=== PATIENT | male | born 1975 | race Caucasian/White ===

== ENCOUNTER 2025-05-19 15:39 | Outpatient (AMB) | payer BC, SELFPAY ==
--- OUTSIDE RECORDS SUMMARY | 2025-05-19 15:41 | XMS_ITS | Clinical Summary ---
Author Organization 175 [facility] Address [address] [place] [address] Phone Care Team Providers Care Kettle Tender Name Role Phone Emely Raphael MD Primary Care Provider [phone] Allergies No known active allergies Medications buPROPion XL (WELLBUTRIN XL) 150 mg 24 hr tablet Take 150 mg by mouth every morning. Active buPROPion XL (WELLBUTRIN XL) 300 mg 24 hr tablet Take 300 mg by mouth every morning. Active cholecalcifero l (VITAMIN D-3) 50 mcg (2,000 unit) tablet Take 1 Tablet by mouth daily. 02/14/20 24 Active fluticasone propion-salmet Selvin (ADVAIR HFA) 230-21 mcg/actuation inhaler Inhale 2 Puffs into the lungs 2 times daily for 360 days. 09/20/20 23 Active gabapentin (NEURONTIN) 300 mg capsule Take 1 Capsule by mouth at bedtime. 09/04/20 22 Active LORazepam (ATIVAN) 0.5 mg tablet Take 0.5 mg by mouth every 6 hours as needed. Active SUMAtriptan (IMITREX) 50 mg tablet Take 1 Tablet by mouth as needed. 11/14/19 23 Active topiramate (TOPAMAX) 50 mg tablet TAKE 1 TABLET BY MOUTH TWICE A DAY FOR 90 DAYS 08/09/20 23 Active venlafaxine XR (EFFEXOR-XR) 150 mg 24 hr capsule TAKE 1 CAPSULE BY MOUTH ONCE A DAY WITH 75 MG CAPSULE FOR TOTAL DOSE = 225 MG. 09/01/20 23 Active venlafaxine XR (EFFEXOR-XR) 75 mg 24 hr capsule Take 1 Capsule by mouth daily. Active triamcinolone (KENALOG) 0.5 % cream Apply locally twice a day Active semaglutide (WEGOVY) 0.25 mg/0.5 mL injection pen Inject 0.25 mg into the skin once a week. - Subcutaneous Active albuterol HFA (PROAIR HFA ; PROVENTIL HFA ; VENTOLIN HFA) 90 mcg/actuation inhaler INHALE 2 PUFFS BY MOUTH EVERY 6 HOURS NEEDED FOR COUGH, WHEEZING, OR SHORTNESS OF BREATH FOR UP TO 30 DAYS 8.5 each 10/03/20 24 Active fluticasone furoate (Arnuity Ellipta) 100 mcg/actuation blister with device inhalerIndicat ions:Moderate persistent asthma, unspecified whether complicated Inhale 1 puff by mouth 1 (one) time each day. 3 each 10/31/19 25 026 Active Arnuity Ellipta 200 mcg/actuation blister with device inhaler INHALE 1 PPUFF EVERY DAY 30 each 12/04/19 25 Active fluticasone furoate-vilant Selvin (Breo Ellipta) 200-25 mcg/dose inhaler Inhale 1 puff by mouth 1 (one) time each day. 1 each 05/01/20 25 026 Active albuterol HFA (PROAIR HFA ; PROVENTIL HFA ; VENTOLIN HFA) 90 mcg/actuation inhaler Inhale 2 puffs by mouth every 6 (six) hours if needed for wheezing or shortness of breath. 1 each 05/01/20 25 026 Active lisinopriL (PRINIVIL,ZEST RIL) 10 mg tablet TAKE 1 TABLET BY MOUTH EVERY DAY 90 tablet 3 05/09/20 25 Active simvastatin (ZOCOR) 40 mg tablet TAKE 1 TABLET BY MOUTH EVERYDAY AT BEDTIME 90 tablet 05/12/20 25 Active lisinopriL (PRINIVIL,ZEST RIL) 10 mg tablet Take 1 Tablet by mouth daily. 02/14/20 24 025 Discontinued simvastatin (ZOCOR) 40 mg tablet Take 1 Tablet by mouth at bedtime. 02/14/20 24 025 Discontinued Active Problems Problem Noted Date Diagnosed Date Severe obesity (BMI 35.0-35. 9 with comorbidity) ([facility] V24, [facility] V28) 07/18/2024 Other specified anemias 06/27/2022 Allergic rhinitis 12/12/2020 Anxiety 12/12/2020 Depression 12/12/2020 Fatty liver 12/12/2020 Hyperlipidemia 12/12/2020 Hypertension 12/12/2020 Migraine 12/12/2020 DAWIT (obstructive sleep apnea) 12/12/2020 Prediabetes 12/12/2020 Encounters Date Type Department Care Team Description 05/01/2025 2:00 PM EDT Office Visit Pulmonolgy - [address] [place] [address] Mariana Mena MD DAWIT on CPAP (Primary Dx); Chronic bronchitis, unspecified chronic bronchitis type ([facility] V24, [facility] V28); Other idiopathic scoliosis, unspecified spinal region; Moderate persistent asthma, unspecified whether complicated from Last 3 Months Immunizations Name Administration Dates Next Due Influenza Quadravalent, MDCK , 0.5ml, preservative free (Flucelvax) 6mo and older 10/03/2023 Influenza trivalent, MDCK, 0 .5mL, preservative free (Flucelvax) 6mo and older 06/13/2024 Moderna SARS-CoV-2 COVID-19, mRNA, LNP-S, preservative free 08/17/2021 Tdap Tetanus diptheria acell ular pertussis (Boostrix; Adacel) 7yo and older 02/09/2023,07/12/2017,05/02/2013 Medical History Medical History Date Comments Hypertension 12/12/2020 DX:Hypertension Prediabetes 12/12/2020 DX:Prediabetes Depression 12/12/2020 DX:Depression Fatty liver 12/12/2020 DX:Fatty liver Allergic rhinitis 12/12/2020 DX:Allergic rh initis Severe obesity (BMI 35.0-35. 9 with comorbidity) ([facility] V24, [facility] V28) 12/12/2020 DX:Severe obes ity (BMI 35.0- 35.9 with comorbidity) ([facility]) Family History Medical History Relation Name Comments Depression Brother Diabetes Father Coronary artery disease Mother Relation Name Status Comments Brother Father Mother Social History Tobacco Use Types Packs/Day Years Used Date Smoking Tobacco: Never Smokeless Tobacco: Never Tobacco Cessation:Counseling Given: Not Answered Alcohol Use Standard Drinks/Week Comments Never 0 (1 standard drink = 0.6 oz pur e alcohol) Housing Instability Answer Date Recorde d Are you worried that in the next 2 months you may not have stable housing? No 02/13/2025 Food Access & Nutrition Answer Date Rec orded Do you have access to a vari ety of food including fruits and vegetables? Yes 02/13/2025 Access to Healthcare Answer Date Record ed Within the last 3 months, ho w many times did you visit the emergency department for your medical care? 0 02/13/2025 Health Literacy Answer Date Recorded How often do you need to hav e someone help you when you read instructions, pamphlets, or other written material from your doctor or pharmacy? Rarely 02/13/2025 Caregiver: How often do you need to have someone help you when you read instructions, pamphlets, or other written material from your doctor or pharmacy? Not on file 02/13/2025 Financial Risk Answer Date Recorded How hard is it for you to pa y for the very basics like food, housing, medical care, and air conditioning / heating? Somewhat hard 02/13/2025 Transportation Answer Date Recorded Has the lack of transportati on kept you from meetings, work, or from getting things needed for daily living? Patient declined 02/13/2025 Has the lack of transportati on kept you from medical appointments or from getting medications? Patient declined 02/13/2025 Social Isolation Answer Date Recorded How often do you feel lonely or isolated from th ose around you? Often 02/13/2025 Food Risk Answer Date Recorded Within the past 12 months we worried whether our food would run out before we got money to buy more. Sometimes true 025 Within the past 12 months th e food we bought just didn't last and we didn't have money to get more. Never true 02/13/2025 Dependent Care Answer Date Recorded Do you need help finding or paying for care for your loved ones. For example, manager child or elderly care for an older adult? Patient declined 02/13/2025 Education Answer Date Recorded Do you think completing more education or training, like finishing a GED, going to college, or learning a trade, would be helpful for you? Patient declined 02/13/2025 Employment and Income Answer Date Recor ded During the last four weeks, have you been actively looking for work? Patient declined 02/13/2025 Living Situation Answer Date Recorded What is your living situation? 0 02/13/2025 Sex and Gender Information Value Date Recorded Sex Assigned at Not on file Legal Sex Male 5:47 PM EST Gender Identity Not on file Sexual Orientation Not on file Obstetrics History Last Filed Vital Signs Vital Sign Reading Time Taken Comments Blood Pressure 152/96 05/01/2025 1:48 PM EDT Pulse 83 05/01/2025 1:48 PM EDT Temperature 37 C (98.6 F) 05/01/2025 1:48 PM EDT Respiratory Rate 20 10/31/2024 2:17 PM EST Oxygen Saturation 98% 05/01/2025 1:48 PM EDT Inhaled Oxygen Concentration - - Weight 117 kg (258 lb) 05/01/2025 1:48 PM EDT Height 177.8 cm (5' 10 ) 10/31/2024 2:17 PM EST Body Mass Index 37.02 10/31/2024 2:17 PM EST Plan of Treatment Upcoming Encounters Date Type Department Care Team (Late st Contact Info) Description 10/29/2025 3:30 PM EST Office Visit Pulmonol - [place] [facility] [address] [place] [phone] Mariana Mena MD [address] [address] Health Maintenance Due Date Last Done Comments Hepatitis B Vaccines (1 of 3 - 19+ 3-dose series) 1994 Pneumococcal Vaccine: Pediatrics (0 to 5 Years) and At-Risk Patients (6 to 49 Years) (1 of 2 - PCV) 1994 Colorectal Cancer Screening: Colonoscopy 09/24/2022 HIV Screening 09/24/2022 Hepatitis C Screening 09/24/2022 Medicare Annual Wellness Visit 09/24/2022 Hypertension/CHF/CAD Annual BMP Blood Test 02/13/2025 02/14/2024, 02/14/2024 Influenza Vaccine (#1) 2025 06/13/2024, 2022 Social Influencers of Health Screening 02/13/2026 02/13/2025 Cholesterol Screening (Lipid Panel) 02/13/2029 02/14/2024, 02/14/2024 DTaP,Tdap,and Td Vaccines (4 - Td or Tdap) 02/09/2033 02/09/2023, 07/12/2017, 05/02/2013 COVID-19 Vaccine Completed 06/13/2024, , 08/08/2022, Additional history exists Depression Screening Completed 02/13/2025 HIB Vaccines Aged Out No longer eligi ble based on patient's age to complete this topic HPV Vaccines Aged Out No longer eligi ble based on patient's age to complete this topic Hepatitis A Vaccines Aged Out No long er eligible based on patient's age to complete this topic IPV Vaccines Aged Out No longer eligi ble based on patient's age to complete this topic MMR Vaccines Aged Out No longer eligi ble based on patient's age to complete this topic Meningococcal ACWY Vaccine Aged Out N o longer eligible based on patient's age to complete this topic Meningococcal B Vaccine Aged Out No l onger eligible based on patient's age to complete this topic RSV Immunization Patients Under 20 months Aged Out No longer eligible based on patient's age to complete this topic Varicella Vaccines Aged Out No longer eligible based on patient's age to complete this topic Procedures Procedure Name Priority Date/Time Associated Diagnosis Comments ANNUAL BMP BLOOD TEST Routine 02/14/2024 LIPID PANEL Routine 02/14/2024 from Last 3 Months or Most Recently Relevant to Health Maintenance Results * Annual BMP Blood Test (02/14/2024) Pathologist [facility] Annual BMP Blood Test abstracted Historical Provider HEALTH MAINTENANCE Final Result * (ABNORMAL) Lipid panel (02/14/2024) [facility] LDL/HDL Ratio 4 0 - 4 Triglycerides 165(A) 0 - 150 mg/dL Cholesterol 172 0 - 200 mg/dL HDL 41 >=40 mg/dL LDL Cholesterol 98 0 - 100 mg/dL Blood Venous blood specimen / Unknown Historical Provider LAB BLOOD ORDERABLES Brianna l Result from Last 3 Months or Most Recently Relevant to Health Maintenance [place] Care Teams Kettle Tender Relationship Specialty Start Date End Date Emely Raphael MD [address] [place] [phone] PCP - General Internal Medicine 08/23/24
--- OUTSIDE RECORDS SUMMARY | 2025-05-19 15:42 | XMS_ITS ---
Author Name [facility] Organization Unknown Care Team Organization Name Specialty Phone Email Start Date End Da te [facility] [place] [facility] 08/23/2022 06/03/20 24
--- OUTSIDE RECORDS SUMMARY | 2025-05-19 15:42 | XMS_ITS | Clinical Summary ---
Author Organization [facility] Address [address] [place] [address] Care Team Providers Care Child Welfare Counselor Name Role Phone Emely Raphael MD Primary Care Provider [phone] Allergies No known active allergies Medications Medication Sig Dispensed Refills Start Date End Date Status topiramate (TOPAMAX) 50 MG tablet Take 1 tablet (50 mg total) by mouth daily. 0 Active lisinopril (PRINIVIL,ZESTRIL) tablet 10 mg Take 1 tablet (10 mg total) by mouth daily. 0 Active simvastatin (ZOCOR) tablet 40 mg Take 1 tablet (40 mg total) by mouth every night at bedtime. 0 Active buPROPion (WELLBUTRIN XL) 300 MG 24 hr tablet Take 1 tablet (300 mg total) by mouth daily. 0 Active buPROPion (WELLBUTRIN XL) 150 MG 24 hr tablet Take 1 tablet (150 mg total) by mouth daily. 0 Active LORazepam (ATIVAN) 0.5 MG tablet Take 1 tablet (0.5 mg total) by mouth every 6 (six) hours as needed. 0 Active venlafaxine (EFFEXOR-XR) 75 MG 24 hr capsule Take 1 capsule (75 mg total) by mouth daily. 0 Active gabapentin (NEURONTIN) 300 MG capsule Take 1 capsule (300 mg total) by mouth 3 (three) times a day. 0 Active SUMAtriptan (IMITREX) 50 MG tablet Take 1 tablet (50 mg total) by mouth every 2 (two) hours as needed for migraine. 0 Active Active Problems Problem Noted Date Diagnosed Date Other specified anemias 06/27/2022 Social History Tobacco Use Types Packs/Day Years Used Date Smoking Tobacco: Never Assessed Sex and Gender Information Value Date Recorded Sex Assigned at Male 06/27/2022 11:47 AM EDT Gender Identity Not on file Sexual Orientation Not on file Job Start Date Occupation Industry Not on file Not on file Not on file Last Filed Vital Signs Vital Sign Reading Time Taken Comments Blood Pressure 150/86 02/27/2023 11:38 AM EDT Pulse 98 02/27/2023 11:38 AM EDT Temperature 36.9 C (98.5 F) 02/27/2023 11:38 AM EDT Respiratory Rate - - Oxygen Saturation 99% 02/27/2023 11: 38 AM EDT Inhaled Oxygen Concentration - - Weight 124.1 kg (273 lb 9.6 oz) 023 11:38 AM EDT Height 177.8 cm (5' 10 ) 02/27/2023 11: 38 AM EDT Body Mass Index 39.26 02/27/2023 11:38 AM EDT Plan of Treatment Health Maintenance Due Date Last Done Comments Hepatitis B Vaccines (1 of 3 - 3-dose series) 1975 Hepatitis C Screening 1975 COVID-19 Vaccine (#1) 05/16/1976 Depression Screening 1987 Preventative Health Evaluation 1993 Colon Cancer Screening (Colonoscopy) 2020 Influenza Vaccine (#1) 2025 DTap / Tdap / Td (3 - Td or Tdap) 02/09/2033 02/09/2023, 05/02/2013 Pneumococcal Vaccine Aged Out No long er eligible based on patient's age to complete this topic RSV Ped < 20 months Aged Out No longe r eligible based on patient's age to complete this topic Care Teams Child Welfare Counselor Relationship Specialty Start Date End Date Emely Raphael MD [address] [phone] PCP - General Internal Medicine 03/24/22
--- NOTE | 2025-05-19 16:07 | A.OFFVIS_ITS ---
Intake Visit Reasons: Migrane/ RLS Allergies No Known Allergies Allergy (Verified 05/19/25 16:11) Medication List - Last Reconciled 05/19/25 by Soraida Oneil CNP bupropion HCl XL 300 mg PO QAM clonidine HCl 0.1 mg PO BEDTIME PRN fluticasone furoate-vilanterol 200-25 mcg/dose (Breo Ellipta) 1 ea inhalation DAILY gabapentin 300 mg PO BEDTIME lisinopril 10 mg PO DAILY lorazepam 0.5 mg PO TID PRN simvastatin 40 mg PO BEDTIME sumatriptan succinate mg PO topiramate 50 mg PO BID venlafaxine ER 75 mg PO DAILY HPI Comments Details: 49-year-old RH man with obesity, HTN, DAWIT on CPAP, RLS, depression, anxiety, and migraine. He was doing okay. He was getting migraine about 4-5x/month with photophobia, sonophobia, and sometimes dizziness. Migraines were triggered by changes in barometric pressure or with humidity. Sumatriptan as needed helped, but he ran out of medication. RLS symptoms were controlled with medication. Mood was more depressed. He was working with psychiatrist. Sleep was okay with CPAP. [facility] Medical History (Updated 05/19/25 @ 16:10 by Soraida Oneil CNP) DAWIT on CPAP Hypertension Bruxism RLS (restless legs syndrome) Insomnia Migraine without aura Anxiety and depression Review of Systems Const Denies chills, Denies daytime sleepiness, Denies difficulty sleeping, Denies fatigue, Denies fever(s), Denies frequent falls, Reports headache(s), Denies increased appetite, Denies poor appetite, Denies snoring, Denies weakness, Denies weight gain and Denies weight loss Eyes Denies loss of vision ENT Denies vertigo, Denies dizziness and Reports headache(s) Card Denies chest pain at rest, Denies chest pain with activity, Denies syncope, Denies leg edema and Denies palpitations Resp Denies snoring GI Denies constipation, Denies heartburn, Denies diarrhea and Denies nausea Denies urinary frequency, Denies urinary incontinence and Denies urinary urgency Musc Denies abnormal gait, Denies numbness and Denies tingling Skin/Breast Denies dry skin and Denies rash Neuro Denies abnormal gait, Denies vertigo, Denies dizziness, Denies syncope, Denies frequent falls, Reports headache(s), Denies lack of coordination, Denies loss of vision, Denies memory loss, Denies numbness, Reports restless legs, Denies seizure-like activity, Denies tingling, Denies paresthesias, Denies tremor(s) and Denies weakness Psych Denies anxiety, Denies depression, Denies auditory hallucinations, Denies memory loss, Denies visual hallucinations and Denies suicidal ideation Endo Denies fatigue and Denies palpitations Physical Exam Const Other: General Appearance:? normal, in no acute distress. Skin:? no rashes, no significant birthmarks. Heart:? S1, S2 normal, no murmurs. Lungs:? clear anteriorly and posteriorly. Extremities:? no edema. Psych:? alert, oriented, cognitive function intact, cooperative with exam. Neuro Other: Mental Status:?Normal attention, orientation, and flat affect.? Cranial Nerves:?Pupils are equal, round and reactive to light. External occular muscles are intact. Visual rodriguez are full. Face is symmetrical. Facial sensations are normal. Tongue is midline. Palate elevates symmetrically. Shoulder shrugging is normal. Hearing to bedside conversation is normal. Sensory Exam:?....? Coordination:?No ataxia,?no titubation.? Gait Exam: Within normal limits. Cerebellar Signs:?[id number] is okay. Extrapyramidal System:?No tremor, rigidity with normal facial expressions.? Pronator Drift:?Not present.? Involuntary Movements:?No tremors seen.? Speech:?Normal.? Assessment & Plan Assessment & Plan (1) Migraine without aura: Code(s): G43.009 - Migraine without aura, not intractable, without status migrainosus Category: Medical Qualifiers: Status migrainosus presence: without status migrainosus Intractability: not intractable Qualified Code(s): G43.009 - Migraine without aura, not intractable, without status migrainosus Plan: Continue topiramate 50mg 1 tablet twice a day. Continue sumatriptan 50mg 1 tablet as needed for migraine. (2) RLS (restless legs syndrome): Code(s): G25.81 - Restless legs syndrome Category: Medical Plan: Continue gabapentin 300mg 1 capsule at bedtime. Medications: New sumatriptan succinate take 1 tab at onset of headache; if no relief may repeat 1 tab after at least 2 hrs; PO 10 tabs 5RF 30 days Discontinued sumatriptan succinate Discontinued Reason: Order PO Coding Level of Care Code Est Pt Level 4 (25515) Diagnoses Migraine without aura and without status migrainosus, not intractable G43.009 Status migrainosus presence: without status migrainosus Intractability: not intractable RLS (restless legs syndrome) G25.81
== END 2025-05-19 16:19 | disposition home or self-care (01) ==
LOC: HO.HSM 15:39
PROVIDERS: PCP Internal Medicine; Visit Provider Registered Nurse
DX: G43.009 Migraine without aura, not intractable, without status migrainosus (principal); G25.81 Restless legs syndrome
CPT/HCPCS: 99214